=== PATIENT | male | born 1995 | race Caucasian/White ===

== ENCOUNTER 2021-12-15 16:12 | Emergency (ER) | payer OTHER ==
[~2021-12-15] VITALS: Ht 172.7 cm; Wt 49.0 kg
[2021-12-15 16:15] VITALS: BP 147/73
[2021-12-15] MEDS ORDERED: METOCLOPRAMIDE 10 MG/2 ML INJ VIAL IVP ONE ×2 (16:40→17:55)
[2021-12-15] MEDS ORDERED: NACL 0.9% 1,000 ML IV ONE (16:40)
[2021-12-15] MEDS ORDERED: diphenhydrAMINE 50 MG/ML VIAL IVP ONE (16:40)
--- NOTE | 2021-12-15 16:40 | NUR ---
PATIENT REFUSING TO CHANGE INTO GOWN
[2021-12-15 16:51] LABS: BASOPHILS % (AUTO) 0.2 % (0.0-2.0); HEMATOCRIT 45.5 % (36-52); HEMOGLOBIN 15.5 g/dL (12.0-18.0); LYMPHOCYTES # (AUTO) 0.6 K/uL (2.0-11.5); LYMPHOCYTES % (AUTO) 4.2 % (20.5-51.1); MEAN CORPUSCULAR HEMOGLOBIN 31 pg (27-31); MEAN CORPUSCULAR HGB CONC 34 g/dL (33-37); MEAN CORPUSCULAR VOLUME 89.8 fL (80-94); MONOCYTES # (AUTO) 0.7 K/uL (0.8-1.0); MONOCYTES % (AUTO) 4.5 % (1.7-9.3); NEUTROPHILS # (AUTO) 13.5 K/uL (1.8-7.7); NEUTROPHILS % (AUTO) 91.1 % (42.2-75.2); PLATELET COUNT (AUTO) 206 K/uL (140-450); RED BLOOD CELL COUNT(AUTO) 5.07 MIL/uL (4.20-6.10); RED CELL DISTRIBUTION WIDTH 13.2 % (11.6-13.7); WHITE BLOOD COUNT (AUTO) 14.8 K/uL (4.8-10.8)
--- NOTE | 2021-12-15 17:01 | NUR ---
26/M PRESENTS TO ED WITH C/O ABDOMINAL PAIN, NAUSEA AND VOMITING XTODAY. PATIENT REPORTS WAKING UP WITH THE PAIN, DENIES TAKING MEDICATION FOR SYMPTOMS AT HOME. PATIENT REPORTS 9/10 INTERMITTENT SHARP PAIN TO ALL QUADRANTS, REPORTS SMOKING MARIJUANA LAST NIGHT, DENIES ALCOHOL OR OTHER DRUG USE. PATIENT DENIES FEVERS, CHILLS, DIARRHEA OR RECENT SICK CONTACTS.
[2021-12-15 17:02] LABS: ALBUMIN 4.5 g/dL (3.4-5.0); ANION GAP 18.1 (8-16); CARBON DIOXIDE 22.6 mmol/L (21-32); CREATININE 0.9 mg/dL (0.6-1.3); POTASSIUM 3.7 mmol/L (3.5-5.1); TOTAL BILIRUBIN 0.7 mg/dL (0.0-1.0)
[2021-12-15] MEDS ORDERED: FAMO-90 PO (17:30)
[2021-12-15] MEDS ORDERED: ONDA-188 PO (17:30)
[2021-12-15] MEDS ORDERED: METOCLOPRAMIDE 10 MG/2 ML INJ VIAL ONE (17:55)
[2021-12-15 18:12] VITALS: BP 139/45
--- NOTE | 2021-12-15 18:12 | NUR ---
IV removed, catheter intact and site benign. Applied folded 4x4 gauze and tape to stop bleeding.
--- NOTE | 2021-12-15 18:12 | NUR ---
Patient discharged with v/s stable. Written and verbal after care instructions ABOUT CANNABINOID HYPEREMESIS SYNDROME given and explained. Patient alert, oriented and verbalized understanding of instructions. Ambulatory with steady gait. All questions addressed prior to discharge. ID band removed. Patient advised to follow up with PMD. Rx of PEPCID AND ZOFRAN given. Patient educated on indication of medication including possible reaction and side effects. Opportunity to ask questions provided and answered.
== END 2021-12-15 18:12 | disposition home or self-care (01) ==
LOC: MED 16:12
DX: R10.84 Generalized abdominal pain (principal)
CPT/HCPCS: 36415; 80053; 83690; 85025; 96361; 96374; 96375; 96376; 99284; J1200; J2765; J7030